=== PATIENT | female | born 1965 | race Caucasian/White ===

== ENCOUNTER 2016-12-09 02:01 | Emergency (ER) | payer OTHER ==
[~2016-12-09] VITALS: Ht 167.6 cm; Wt 96.7 kg
[2016-12-09 03:36] LABS: CHLORIDE 104 mEq/L (99-109); POTASSIUM 4.1 mEq/L (3.7-5.4); SODIUM 140 mEq/L (136-147)
[2016-12-09 03:38] LABS: GLUCOSE 114 mg/dL (70-99)
[2016-12-09 03:40] LABS: ANION GAP 12 MEQ/L (2-14); TOTAL BILIRUBIN 0.6 mg/dL (0.0-1.0)
[2016-12-09 03:42] LABS: ALKALINE PHOSPHATASE 78 IU/L (3-129); GFR ESTIMATE (CALCULATED) > 59 mL/min/; HEMATOCRIT 37.3 % (36.0-46.0); MCH 30.9 PG (29.0-34.0); MCHC 34.6 G/DL (30.0-36.0); MCV 89.4 FL (83-99); PLATELET COUNT 178 K/uL (156-360); RBC DIS.WIDTH-CV 11.7 % (11.8-14.6); RED BLOOD COUNT 4.17 M/uL (3.80-5.20)
[2016-12-09 03:43] LABS: UREA NITROGEN (BUN) 15 mg/dL (9-23); WHITE BLOOD COUNT 1.1 K/uL (4.1-10.2)
[2016-12-09 04:30] LABS: ABS NEUTROPHIL COUNT 0.23; EOSINOPHIL ABS CT 0.04; POLYCHROMASIA 1+; USER ID SLU
[2016-12-09 04:31] LABS: DELETE MACHINE DIFF? YES
[2016-12-09 04:50] LABS: ADD MIUA? NO; BILIRUBIN NEGATIVE; BLOOD NEGATIVE; COLOR STRAW ((YELLOW)); GLUCOSE (STRIP) NEGATIVE; KETONES NEGATIVE; LEUKOCYTES NEGATIVE; NITRITE NEGATIVE; PROTEIN (STRIP) NEGATIVE; SPECIFIC GRAVITY 1.011 (1.000-1.030); UCUL ADDED? NO; UROBILINOGEN 0.2 MG/DL (0.2-1.0)
[2016-12-09] MEDS ORDERED: PERCOCET 5/31 TABLET PO (05:19)
[2016-12-09] MEDS ORDERED: ZOFRAN4 MG PO (05:19)
[2016-12-09 06:38] VITALS: BP 121/76
== END 2016-12-09 06:39 | disposition home or self-care (01) ==
LOC: EME
PROVIDERS: Emergency Medicine
DX: R51 Headache (principal); R11.2 Nausea with vomiting, unspecified; C50.919 Malignant neoplasm of unspecified site of unspecified female breast
CPT/HCPCS: 70450; 80053; 81003; 83605; 85025; 87040; 99281; 99285; J2405; J3010; J7030

== ENCOUNTER 2016-12-19 15:31 | Emergency (ER) | payer OTHER ==
[~2016-12-19] VITALS: Ht 167.6 cm; Wt 97.1 kg
[~2016-12-19 15:31] MED LIST: PERCOCET 5/31 TABLET PO; ZOFRAN4 MG PO
[2016-12-19 17:30] LABS: HEMATOCRIT 37.2 % (36.0-46.0); MCHC 34.4 G/DL (30.0-36.0); MCV 90.1 FL (83-99); MEAN PLAT.VOLUME 9.4 uM^3 (9.5-12.4); PLATELET COUNT 192 K/uL (156-360); RBC DIS.WIDTH-CV 12.4 % (11.8-14.6); RBC DIS.WIDTH-SD 39.6 % (39-53); RED BLOOD COUNT 4.13 M/uL (3.80-5.20); WHITE BLOOD COUNT 5.6 K/uL (4.1-10.2)
[2016-12-19 17:33] LABS: CHLORIDE 100 mEq/L (99-109)
[2016-12-19 17:34] LABS: POTASSIUM 3.2 mEq/L (3.7-5.4); SODIUM 141 mEq/L (136-147)
[2016-12-19 17:35] LABS: GLUCOSE 89 mg/dL (70-99)
[2016-12-19 17:37] LABS: ANION GAP 11 MEQ/L (2-14)
[2016-12-19 17:39] LABS: GFR ESTIMATE (CALCULATED) > 59 mL/min/
[2016-12-19 17:40] LABS: UREA NITROGEN (BUN) 12 mg/dL (9-23)
[2016-12-19] MEDS ORDERED: MELOXICAM15 MG PO (18:54)
[2016-12-19] MEDS ORDERED: DEXILANT60 MG PO (18:54)
[2016-12-19] MEDS ORDERED: COMPAZINE10 MG PO (18:56)
[2016-12-19 19:01] LABS: TROP-I INTERPRETATION NEGATIVE; TROPONIN-I < 0.01 ng/mL (0.0-0.30)
[2016-12-19] MEDS ORDERED: PERCOCET 5/31 TABLET PO (21:50)
[2016-12-19] MEDS ORDERED: ZOFRAN ODT4 MG PO (21:50)
[2016-12-19 22:09] VITALS: BP 134/88
== END 2016-12-19 22:10 | disposition home or self-care (01) ==
LOC: EME 15:31
DX: R42 Dizziness and giddiness (principal); E86.0 Dehydration; E87.6 Hypokalemia; R11.0 Nausea; C50.919 Malignant neoplasm of unspecified site of unspecified female breast
CPT/HCPCS: 71020; 80048; 84484; 85027; 93005; 99281; 99285; J2405; J7030